=== PATIENT | male | born 1970 | race African-American/Black ===

== ENCOUNTER 2016-06-30 09:45 | Emergency (ER) | payer SELFPAY ==
[~2016-06-30] VITALS: Ht 180.3 cm; Wt 72.8 kg
[2016-06-30] MEDS ORDERED: SODIUM CHLORIDE 0.9% 1,000ML IVBOLUS ONE (11:00)
[2016-06-30] MEDS: SODIUM CHLORIDE 0.9% 1,000 ML IV ONE ×2 (11:26→12:50)
[2016-06-30 11:57] LABS: ASPARTATE AMINO TRANSFERASE 11 U/L (15-37); BLOOD UREA NITROGEN 20 mg/dL (7-18)
[2016-06-30 13:32] VITALS: BP 113/71
== END 2016-06-30 14:01 | disposition home or self-care (01) ==
LOC: ED 13:44
DX: K52.9 Noninfective gastroenteritis and colitis, unspecified (principal); K85.90 Acute pancreatitis without necrosis or infection, unspecified; E78.89 Other lipoprotein metabolism disorders
CPT/HCPCS: 36415; 74022; 76700; 80053; 83690; 85025; 96360; 96361; 99285; J7030

== ENCOUNTER 2016-09-15 10:15 | Emergency (ER) | payer SELFPAY ==
[~2016-09-15] VITALS: Ht 180.3 cm; Wt 75.0 kg
[2016-09-15] MEDS ORDERED: SODIUM CHLORIDE 0.9% 1,000 ML IV ONE (10:23)
[2016-09-15] MEDS ORDERED: NALOXONE 1 MG/ML, 2ML ONE ×2 (10:24→10:30)
[2016-09-15] MEDS ORDERED: SODIUM CHLORIDE 0.9% 1,000ML IVBOLUS ONE (10:30)
[2016-09-15] MEDS ORDERED: NALOXONE 1 MG/ML, 2ML IVPush ONE (10:30)
[2016-09-15] MEDS ORDERED: PLEASE ENTER HEIGHT AND WEIGHT MC SCH (10:30)
[2016-09-15] MEDS ORDERED: PLEASE ENTER ALLERGIES MC SCH ×2 (10:30)
[2016-09-15] MEDS ORDERED: NALOXONE 0.4 MG/ML, 1ML ONE (10:31)
[2016-09-15 10:57] LABS: BLOOD UREA NITROGEN 18 mg/dL (7-18)
[2016-09-15 16:52] VITALS: BP 117/74
== END 2016-09-15 17:02 | disposition home or self-care (01) ==
LOC: MERGE 16:02 → ED 16:02
DX: R41.82 Altered mental status, unspecified (principal); R53.83 Other fatigue; F19.129 Other psychoactive substance abuse with intoxication, unspecified
CPT/HCPCS: 36415; 80048; 80307; 82040; 85025; 96361; 96374; 99285; J2310; J7030

== ENCOUNTER 2018-10-10 13:35 | Emergency (ER) | payer MEDICAID ==
[~2018-10-10] VITALS: Ht 180.3 cm; Wt 73.0 kg
[2018-10-10 13:42] VITALS: BP 126/78
== END 2018-10-10 14:43 | disposition home or self-care (01) ==
LOC: ED 14:27
DX: R05 Cough (principal); R11.0 Nausea; F17.200 Nicotine dependence, unspecified, uncomplicated; Z72.9 Problem related to lifestyle, unspecified
CPT/HCPCS: 71046; 99284

== ENCOUNTER 2019-02-10 07:04 | Emergency (ER) | payer MEDICAID ==
[~2019-02-10] VITALS: Ht 180.3 cm; Wt 77.6 kg
--- NOTE | 2019-02-10 07:17 | NUR ---
BIB EMS, PT FOUND SLEEPING ON SIDEWALK +ETOH UNABLE TO AMBULATE. PT PRESENTS UNCOOPERATIVE, WON'T ANSWER ANY QUESTIONS. KUO EXT WITH PURPOSE. PT RESISTIVE TO RN ATTEMPTING TO PLACE BP CUFF OR OBTAIN ORAL TEMP. VSS PER EMS, I WAS ABLE TO PLACE A PULSE OX MONITOR WITH RA SAT OF 87 - 91%. 02 SL NC PLACED. ER PA AT BEDSIDE, ASSESSMENT REV. PT REFUSING TO ACKNOWLEDGE ER PA. SIDE RAILS UP X 2 LIGHTS ON IN ROOM AND CURTAINS OPEN. WILL CONT TO MONITOR RESP AND SP02
[2019-02-10 10:45] VITALS: BP 121/82
--- NOTE | 2019-02-10 10:48 | NUR ---
LATE ENTRY 0900 PT CONTINBUES TO BE RESISTIVE TO RN ATTEMPTS TO PLACE BP CUFF OR ANSWER QUESTIONS. WHEN STIM HE REPOSITIONS SELF PULLS THE COVRS UP AROUND HIM AND RTNS TO SLEEPING NAD NOTED.
--- NOTE | 2019-02-10 10:49 | NUR ---
PT NOW ARROUSES TO VERBAL STIM. FOLLOWS COMMANDS AND ALLOWS BP AND TEMP TO BE TAKEN. VSS. ATTEMPTED TO OBTAIN BREATHALYZER PT NOT COOPERATIVE. BUS OR TAXI VOUCHER OFFERED PT REQUESTED BUS PASS.
--- NOTE | 2019-02-10 10:59 | NUR ---
Patient/Caregiver given discharge instructions and they have confirmed that they understand the instructions. Patient ambulatory with steady gait. PT ORIGINALLY REQUESTED BUS PASS, NOW REQUESTS [facility] TO [place] STATING THAT HE LIVES NEAR THERE BUT DID NOT KNOW THE EXACT ADDRESS. TAXI VOUCHER PROVIDED.
== END 2019-02-10 11:00 | disposition home or self-care (01) ==
LOC: ED 07:46
DX: F10.220 Alcohol dependence with intoxication, uncomplicated (principal); Y90.0 Blood alcohol level of less than 20 mg/100 ml
CPT/HCPCS: 99283

== ENCOUNTER 2020-01-08 10:19 | Emergency (ER) | payer SELFPAY ==
[~2020-01-08] VITALS: Ht 185.4 cm; Wt 92.0 kg
--- NOTE | 2020-01-08 10:37 | NUR ---
PT BIB EMS AFTER BEING FOUND DOWN BY BYSTANDER ON [address] PT IS RESPONSIVE TO PAINFUL STIMULI. VSS. UNKNOWN IF INTOXICATED OR ON RECREATIONAL DRUGS. PT CONNECTED TO ALL MONITORING EQUIPMENT. WILL CONTINUE TO MONITOR.
--- NOTE | 2020-01-08 11:27 | NUR ---
PT RESTING IN [facility]. VSS. RESPONSIVE TO VERBAL AND PAINFUL STIMULI
[2020-01-08 12:19] LABS: ALANINE AMINOTRANSFERASE 66 U/L (12-78); ALBUMIN 3.6 g/dL (3.4-5.0); ANION GAP 3 mmol/L (5-15); CALCIUM 8.9 mg/dL (8.5-10.1); CHLORIDE 108 mmol/L (98-107); CREATININE 1.04 mg/dL (0.7-1.3)
[2020-01-08 12:21] LABS: ALKALINE PHOSPHATASE 59 U/L (45-117); BILIRUBIN,TOTAL 0.8 mg/dL (0.2-1.0); TOTAL PROTEIN 7.8 g/dL (6.4-8.2)
--- NOTE | 2020-01-08 13:17 | NUR ---
PT RESTING IN [facility]. VSS. AROUSABLE TO VERBAL STIMULI
[2020-01-08 13:20] LABS: BASOPHILS % (AUTO) 1 % (0-1); EOSINOPHILS % (AUTO) 3 % (1-7); LYMPHOCYTES % (AUTO) 37 % (22-44); MEAN CORPUSCULAR HEMOGLOBIN 30.9 pg (27.5-34.5); MEAN CORPUSCULAR HGB CONC 32.8 g/dL (33.2-36.2); MEAN PLATELET VOLUME 8.2 fL (7.4-10.4); MONOCYTES % (AUTO) 10 % (2-9); NEUTROPHILS % (AUTO) 50 % (42-75); PLATELET COUNT 303 x10^3/uL (130-400); RED BLOOD COUNT 4.77 x10^6/uL (4.38-5.82); RED CELL DISTRIBUTION WIDTH 12.5 % (9.4-14.8)
[2020-01-08 13:26] LABS: MD NO
[2020-01-08 14:34] VITALS: BP 124/81
--- NOTE | 2020-01-08 14:34 | NUR ---
PT RESTING GURNEY. AROUSABLE TO VERBAL STIMULIS. TO GET HEAD CT
--- NOTE | 2020-01-08 15:07 | NUR ---
PT RETURNED FROM CT. PT IS AWAKE AND ALERT. [id number]. PT STATES "I DONT REMEMBER WHAT HAPPENED LAST NIGHT. I WAS AT THE [facility]. THATS ALL I REMEMBER"
== END 2020-01-08 15:34 | disposition home or self-care (01) ==
LOC: ED 15:20 → MERGE 15:20 → ED 15:34
DX: Z00.00 Encounter for general adult medical examination without abnormal findings (principal)
CPT/HCPCS: 36415; 70450; 80053; 80307; 85025; 99284